=== PATIENT | female | born 1990 | race Hispanic/Latino ===

== ENCOUNTER 2021-09-22 05:58 | Day surgery (SDC) | payer MEDICAID, OTHER ==
[2021-09-06 10:56] LABS: Hematocrit 40.3 % (30.3-42.9); Hemoglobin 13.3 gm/dl (10.1-14.3); Mean Corpuscular HGB Conc 33 % (30-34); Mean Corpuscular Volume 78 fl (79-97); Platelet Count 266 K/mm3 (140-440); Red Blood Count 5.17 M/mm3 (3.65-5.03); Red Cell Distribution Width 13.6 % (13.2-15.2)
[2021-09-22] MEDS ORDERED: LACTATED RINGERS 1,000 ML IV SCH (06:00)
[2021-09-22] MEDS ORDERED: MIDAZOLAM 2 MG/2 ML INJ IV NR (06:00)
[2021-09-22] MEDS ORDERED: CELECOXIB 200 MG CAP PO NR (06:00)
[2021-09-22] MEDS ORDERED: GABAPENTIN 300 MG CAP PO NR (06:00)
[2021-09-22] MEDS ORDERED: ACETAMINOPHEN 500 MG TAB PO SCH (06:00)
[2021-09-22] MEDS ORDERED: SCOPOLAMINE TRANSDERMAL PATCH 72 HR TD NR (06:00)
[2021-09-22] MEDS ORDERED: BUPIVACAINE/PF (0.5%) 5 MG/1 ML 10 ML VIAL INFILTRATI ONE ×2 (07:27→08:40)
[2021-09-22] MEDS ORDERED: FAMOTIDINE 20 MG/2 ML INJ IV SCH (07:30)
[2021-09-22] MEDS ORDERED: LIDOCAINE MPF (2%) 20 MG/1 ML VIAL 5 ML ONE (07:31)
[2021-09-22] MEDS ORDERED: propofoL 200 MG/20 ML VIAL IV ONE (07:31)
[2021-09-22] MEDS ORDERED: ROCURONIUM 50 MG/5 ML INJ IV ONE (07:33)
[2021-09-22] MEDS ORDERED: MIDAZOLAM 2 MG/2 ML INJ ONE (07:53)
[2021-09-22] MEDS ORDERED: dexAMETHasone 20 MG/5 ML VIAL ONE (08:13)
[2021-09-22] MEDS ORDERED: SODIUM CHLORIDE 0.9% IRRIG SOLN 2000 ML IR ONE (08:40)
[2021-09-22] MEDS ORDERED: SODIUM CHLORIDE 0.9% IRR 1,500 ML BOTTLE IR ONE (08:40)
[2021-09-22] MEDS ORDERED: KETOROLAC 30 MG/1 ML INJ ONE (08:57)
[2021-09-22] MEDS ORDERED: NEOSTIGMINE 10MG/10 ML INJ MDV ONE (08:57)
[2021-09-22] MEDS ORDERED: GLYCOPYRROLATE 0.4 MG/2 ML INJ ONE (08:57)
[2021-09-22] MEDS ORDERED: oxyCODONE /ACETAMINOPHEN 5-325MG TAB PO PRN (09:00)
[2021-09-22] MEDS ORDERED: ONDANSETRON 4 MG/2 ML INJ IV PRN (09:00)
[2021-09-22] MEDS ORDERED: HYDROmorphone 1 MG/1 ML INJ IV PRN (09:00)
[2021-09-22 10:21] VITALS: BP 116/75
== END 2021-09-22 10:40 | disposition home or self-care (01) ==
LOC: OR 05:58
PROVIDERS: ATTEND Obstetrics & Gynecology
DX: Z30.2 Encounter for sterilization (principal); N93.8 Other specified abnormal uterine and vaginal bleeding; N85.8 Other specified noninflammatory disorders of uterus; D64.9 Anemia, unspecified; E66.9 Obesity, unspecified; Z20.822 Contact with and (suspected) exposure to COVID-19; Z88.8 Allergy status to other drugs, medicaments and biological substances; Z72.89 Other problems related to lifestyle; Z68.34 Body mass index [BMI] 34.0-34.9, adult; Z80.8 Family history of malignant neoplasm of other organs or systems; Z82.49 Family history of ischemic heart disease and other diseases of the circulatory system
CPT/HCPCS: 36415; 58563; 58670; 81025; 84703; 85027; 88302; 88305; J1100; J1170; J1815; J1885; J2250; J2405; J2704; J2710; J3490; J7120; U0003